=== PATIENT | female | born 1960 | race Caucasian/White ===

== ENCOUNTER → 2019-08-31 | Outpatient (CLI) | payer SELFPAY ==
--- NOTE | 2019-08-31 10:30 | XR ---
EXAMINATION TYPE: XR chest 2V DATE OF EXAM: 08/31/2019 COMPARISON: NONE TECHNIQUE: PA and lateral views submitted. HISTORY: Cough FINDINGS: The lungs are clear and there is no pneumothorax, pleural effusion, or focal pneumonia. Hypertrophi c and degenerative change of the spine. No overt failure. Heart size normal. IMPRESSION: 1. No acute process.
== END | disposition home or self-care (01) ==
LOC: RADXRYALE 10:13
PROVIDERS: ATTEND Physician Assistant Medical
DX: J45.31 Mild persistent asthma with (acute) exacerbation (principal)
CPT/HCPCS: 71046

== ENCOUNTER → 2022-07-05 | Day surgery (SDC) | payer OTHER ==
--- NOTE | 2022-07-11 09:53 | USB ---
Risk Values: Rosamaria 5 year model risk: 1.1%. NCI Lifetime model risk: 5.8%. Pathology Description: Location: 12 o'clock. Marker Left Behind. Approach: Lateral to Medial Needle Type: Mammotome Cores: 4 Skin Nicks: 1 Gauge: 13 The procedure of ultrasound guided core biopsy was explained to the patient. Benefits, alternatives, and risks were discussed. An informed consent was then obtained. A timeout was performed. The patient was placed in supine positioning for imaging and for the procedure. The overlying skin was prepped and draped in usual sterile fashion. Lidocaine was used as anesthetic into the skin and subcutaneous tissue up to area of concern in the right breast. A small skin caterina was made with surgical scalpel. Under ultrasound guidance, a 12-gauge vacuum assisted biopsy gun device was used to obtain 4 core samples. A biopsy clip was left in lesion. Hydromark core marker was placed. The patient tolerated the procedure well without any immediate complication. The patient was kept in the radiology department for short stay after the procedure and then discharged home in stable condition. Postprocedure mammogram: The patient was transferred to mammography for physician ordered post procedure mammogram for clip placement verification. Impression: Successful ultrasound guided core biopsy of area of concern in the right breast, full pathology results to follow. Recommendations: 1. Recommendations are pending pathology results. Pathology Results: Result: Benign, Fibrocystic change. RIGHT BREAST, 12:00 POSITION, ULTRASOUND GUIDED CORE BIOPSY: Fibrocystic change with apocrine metaplasia, columnar cell change and hyperplasia and stromal fibrosis. Rare microcalcification appreciated. Focally fragmented benign cyst with columnar cell change and hyperplasia present. Tissue Density: Right: The breast tissue is heterogeneously dense. This may lower the sensitivity of mammography. Overall Assessment: Benign Assessment: MG diagnostic mammo RT wo CAD - Right: Benign, BI-RAD 2. Management: Diagnostic Breast Ultrasound of the right breast in 6 months. Electronically signed and approved by: Cirilo Olivares D.O. Radiologis
== END ==
LOC: RADUSWWP 12:30
PROVIDERS: ATTEND Family Medicine
DX: R92.8 Other abnormal and inconclusive findings on diagnostic imaging of breast (principal); N60.81 Other benign mammary dysplasias of right breast
CPT/HCPCS: 88305; 77065; 19083; A4648

== ENCOUNTER → 2022-07-12 | Outpatient (CLI) | payer OTHER ==
[2022-07-12 09:02] VITALS: BP 122/76; PULSE 86; RESP 16; TEMP 99
--- NOTE | 2022-07-12 09:37 | P.GSHP ---
History of Present Illness H&P Date: 07/12/22 Chief Complaint: abnormal mammogrm/ultrasound right breast Mary is a 61 year old white [facility] right [facility]. Patient had a bilateral screening mammogram done at which she will on [facility] on 01/2122. This was felt to be a BIRADS 0 and additional views of the right breast was recommended. This was secondary to a density measuring 7 mm in the right breast. Additional views were obtained of this on [id number]. Following this an ultrasound was recommended. The ultrasound was performed on . Although the lesion noted on mammogram did not seem to correlate with the lesion of concern on ultrasound and ultrasound-guided core biopsy was recommended of the lesion noted at the 12 o'clock position of the right breast. Ultrasound core biopsy was obtained on [id number]. Pathology revealed fibrocystic breast changes. The patient does not feel any lumps masses or nodules of concern in either breast. She is not complaining of any nipple discharge or skin changes. She has not had any recent trauma or infection in the breast. She did fall in the garden and bump her right breast in December of 2020. Her breast did not turn black and blue. She had not had any biopsies or surgery on her breast prior to this biopsy on [id number]. Nicotine: none; stopped over 20 year ago used to smoke 1 Pack /week caffiene: 1 cup/day chocolate: none BCP: 10 years stopped 20 years ago Family History: Father: cancer pilosebacous cancer/ from that maternal grandmother: breast cancer sister: skin cancer no melanoma sister: skin cancer no melanoma brother: lymphoma nondhodgkins cousin: lymphoma nonhodgkins Hormonal History: menarche: 12 G0 unable to get menopause: 45 hormones: none at menopause Surgical history: tonsil Medical History: asthma sleep disorder Social History: nicotine: stopped 20 years ago alcohol: none drugs: none - Constitutional Constitutional: Denies chills, Denies fever - EENT Eyes: denies blurred vision, denies pain Ears: deny: decreased hearing, tinnitus Ears, nose, mouth and throat: Denies headache, Denies sore throat - Breasts Breasts: bilateral: as per HPI - Cardiovascular Cardiovascular: Denies chest pain, Denies shortness of breath - Respiratory Comment: asthma Respiratory: Denies cough, Denies 7 - Gastrointestinal Gastrointestinal: Denies abdominal pain, Denies diarrhea, Denies nausea, Denies vomiting - Genitourinary (Female) Genitourinary: Denies dysuria, Denies hematuria - Menstruation Menstruation: Reports postmenopausal - Musculoskeletal Musculoskeletal: Denies myalgias - Integumentary Integumentary: Denies pruritus, Denies rash - Neurological Neurological: Denies numbness, Denies weakness - Psychiatric Psychiatric: Reports anxiety, Reports depression - Endocrine Endocrine: Denies fatigue, Denies weight change - Hematologic/Lymphatic Comment: none - Allergic/Immunologic Allergic/Immunologic: Reports as per HPI Past Medical History Past Medical History: Asthma Additional Past Medical History / Comment(s): allergies History of Any Multi-Drug Resistant Organisms: None Reported Past Surgical History: Tonsillectomy Past Anesthesia/Blood Transfusion Reactions: No Reported Reaction Past Psychological History: Anxiety Smoking Status: Former smoker Past Alcohol Use History: Rare Additional Past Alcohol Use History / Comment(s): quit smoking 1998 Past Drug Use History: None Reported Medications and Allergies Home Medications Medication Instructions Recorded Confirmed Type Albuterol Sulfate [Ventolin HFA] 1 - 2 puff INHALATION Q6H PRN 06/26/22 07/12/22 History Cetirizine HCl [Zyrtec] 10 mg PO DAILY 06/26/22 07/12/22 History Fluticasone Nasal [place] [Flonase 1 spray EA NOSTRIL DAILY 06/26/22 07/12/22 History Nasal [place]] Fluticasone Propion/Salmeterol 1 each INHALATION DAILY 06/26/22 07/12/22 History [Airduo Respiclick 113-14 Mcg] Montelukast Sodium [Singulair] 10 mg PO HS 06/26/22 07/12/22 History Zolpidem [Ambien] 5 mg PO HS PRN 06/26/22 07/12/22 History traZODone HCL [Desyrel] 50 mg PO HS 06/26/22 07/12/22 History Allergies Allergy/AdvReac Type Severity Reaction Status Date / Time Penicillins Allergy Anaphylaxis Verified 07/12/22 08:58 bee venom protein (honey bee) AdvReac Anaphylaxis Verified 07/12/22 08:58 guinea pigs Allergy Severe Anaphylaxis Uncoded 07/12/22 08:58 Surgical - Exam Vital Signs Temp Pulse Resp BP Pulse Ox 99.0 F 86 16 122/76 98 07/12/22 08:59 07/12/22 08:59 07/12/22 08:59 07/12/22 08:59 07/12/22 08:59 BMI: 38.3 - General no distress - Eyes normal ocular movement - Neck trachea midline - Respiratory normal respiratory effort - Cardiovascular Rhythm: regular Heart Sounds: normal: S1, S2 - Abdomen Abdomen: soft, non tender, no guarding, no rigid, no rebound - Integumentary normal turgor - Neurologic no disoriented, no combative - Musculoskeletal normal gait, normal posture - Psychiatric oriented to time, oriented to person, oriented to place, speech is normal, memory intact Breast Exam: BRA: 44D inspection: grade 2/3 ptosis; right breast larger than left breast palpation: right breast: Multiple positional exam fibrocystic changes, some mild ecchymosis from recent biopsy no evidence of infection; no dominant masses or nodules of concern Right axilla: No adenopathy of concern Left breast: Multi-positional exam fibrocystic changes no dominant masses or nodules of concern Left axilla: No adenopathy of concern Results Ultrasound of the right breast biopsy site reviewed, mammogram and ultrasound reports are reviewed, pathology reviewed, pathology consistent with fibrocystic changes Assessment and Plan Assessment: Impression: Fibrocystic breast changes Radiographic abnormality right breast and ultrasound core biopsy/Benign Nothing on examination which would warrant interventional biopsy at this time There is some concern that the lesion seen on ultrasound at [facility] was not but was seen initially on the mammogram. Despite this no other lesions of concern were noted on ultrasound for biopsy at this time this will be followed closely Plan: Repeat right breast diagnostic mammogram and ultrasound in 6 months with examination at that time Cc: Dr. De Luna, Alla Herrera
== END ==
LOC: WWCWWP 08:50
PROVIDERS: ATTEND Surgery
DX: N60.11 Diffuse cystic mastopathy of right breast (principal); Z88.0 Allergy status to penicillin; Z91.030 Bee allergy status; Z91.018 Allergy to other foods
CPT/HCPCS: 77065

== ENCOUNTER → 2023-01-03 | Outpatient (CLI) | payer OTHER ==
--- NOTE | 2023-01-03 13:37 | MM ---
Reason for Exam: Follow-up at short interval from prior study. Last screening mammogram was performed 11 month(s) ago. Patient History: Menarche at age 12. Postmenopausal. 07/05/2022, Benign US biopsy breast VAD RT on the right side. Maternal grandmother had breast cancer under age 50. Risk Values: Rosamaria 5 year model risk: 1.4%. NCI Lifetime model risk: 6.7%. Prior Study Comparison: 09/03/2021 Bilateral MG 3D screening mammo w/cad, [facility]. 02/13/2022 Bilateral MG 3D screening mammo w/cad, [facility]. 07/05/2022 Right MG diagnostic mammo RT wo CAD, [facility]. Tissue Density: Right: There are scattered fibroglandular densities. Findings: Analyzed By CAD. Microclip anterior right breast associated with previously biopsied nodularity. Areas of asymmetric density elsewhere in the breast remains unchanged. No significant change from prior exams. Overall Assessment: Incomplete: need additional imaging evaluation, BI-RAD 0 Management: Diagnostic Breast Ultrasound of the right breast. Electronically signed and approved by: Dagoberto Loza M.D. Radiologist
--- NOTE | 2023-01-03 14:49 | USB ---
Reason for Exam: Follow-up at short interval from prior study. Patient History: Menarche at age 12. Postmenopausal. 07/05/2022, Benign US biopsy breast VAD RT on the right side. Maternal grandmother had breast cancer under age 50. Risk Values: Rosamaria 5 year model risk: 1.4%. NCI Lifetime model risk: 6.7%. Technique: Method: Targeted. Prior Study Comparison: 07/05/2022 Right MG diagnostic mammo RT wo CAD, [facility]. Findings: The upper inner quadrant of the right breast, the axilla of the right breast and the retroareolar of the right breast were scanned. Targeted ultrasound upper inner quadrant right breast 12:00 to 3:00 including the subareolar region and axilla. At the 12:00 position, 1 cm from the nipple, previous biopsy site, we note the microclip. This is now located within a benign-appearing 9 x 3 mm cyst. At the 12:00 position, 5 cm from the nipple, there is unchanged 4 mm too small to characterize lesion, likely tiny cyst. No other solid or cystic lesion. Overall Assessment: Benign, BI-RAD 2 Management: Screening Mammogram of both breasts in 6 months. Patient should continue monthly self-breast exams. A clinical breast exam by your physician is recommended on an annual basis. This exam should not preclude additional follow-up of suspicious palpable abnormalities. Note on Rosamaria scores and lifetime risk: 1. A Rosamaria score greater than 3% is considered moderate risk. If this is the case, consider specialist referral to assess eligibility for a risk reducing agent. 2. If overall lifetime risk for the development of breast cancer is 20% or higher, the patient may qualify for future screening with alternating mammogram and breast MRI. Electronically signed and approved by: Dagoberto Loza M.D. Radiologist
--- NOTE | 2023-01-03 15:45 | P.PN ---
Subjective Progress Note Date: 01/03/23 Principal diagnosis: fibrocystic breast changes Mary is a 62-year-old white female initially seen in consultation for Dr. De Luna regarding a core biopsy of the right breast. She had undergone a bilateral screening mammogram at [facility] on . This was felt to be BIRADS 0 and additional views of the right breast were recommended. This was secondary to a density measuring 7 mm in the right breast. Additional views were obtained of this on [id number]. Following this an ultrasound was recommended. This was performed on [id number]. Although the lesion noted on mammogram did not seem to correlate with the lesion of concern on ultrasound and ultrasound-guided core biopsy was recommended of the lesion noted at 12:00. This was performed on [id number]. Pathology revealed fibrocystic breast changes. The patient does not feel any new lumps masses or nodules of concern in either breast. She is not complaining of any nipple discharge or skin change. She did have a fall in her garden in December 2020. She did hit her breast at that time although it did not turn black and blue. The patient had a right breast mammogram and ultrasound on which was benign BIRADS 2. She will be due for a left breast mammogram in January 2023. Nicotine: none; stopped over 20 year ago used to smoke 1 Pack /week caffiene: 1 cup/day chocolate: none BCP: 10 years stopped 20 years ago Family History: Father: cancer pilosebacous cancer/ from that maternal grandmother: breast cancer sister: skin cancer no melanoma sister: skin cancer no melanoma brother: lymphoma nondhodgkins cousin: lymphoma nonhodgkins Hormonal History: menarche: 12 G0 unable to get menopause: 45 hormones: none at menopause Surgical history: tonsil Medical History: asthma sleep disorder Social History: nicotine: stopped 20 years ago alcohol: none drugs: none - Constitutional Constitutional: Denies chills, Denies fever - EENT Eyes: denies blurred vision, denies pain Ears: deny: decreased hearing, tinnitus Ears, nose, mouth and throat: Denies headache, Denies sore throat - Breasts Breasts: bilateral: as per HPI - Cardiovascular Cardiovascular: Denies chest pain, Denies shortness of breath - Respiratory Comment: asthma Respiratory: Denies cough, Denies 7 - Gastrointestinal Gastrointestinal: Denies abdominal pain, Denies diarrhea, Denies nausea, Denies vomiting - Genitourinary (Female) Genitourinary: Denies dysuria, Denies hematuria - Menstruation Menstruation: Reports postmenopausal - Musculoskeletal Musculoskeletal: Denies myalgias - Integumentary Integumentary: Denies pruritus, Denies rash - Neurological Neurological: Denies numbness, Denies weakness - Psychiatric Psychiatric: Reports anxiety, Reports depression - Endocrine Endocrine: Denies fatigue, Denies weight change - Hematologic/Lymphatic Comment: none - Allergic/Immunologic Allergic/Immunologic: Reports as per HPI Past Medical History Past Medical History: Asthma Additional Past Medical History / Comment(s): allergies History of Any Multi-Drug Resistant Organisms: None Reported Past Surgical History: Tonsillectomy Past Anesthesia/Blood Transfusion Reactions: No Reported Reaction Past Psychological History: Anxiety Smoking Status: Former smoker Past Alcohol Use History: Rare Additional Past Alcohol Use History / Comment(s): quit smoking 1998 Past Drug Use History: None Reported Medications and Allergies Home Medications Medication Instructions Recorded Confirmed Type Albuterol Sulfate [Ventolin HFA] 1 - 2 puff INHALATION Q6H PRN 06/26/22 07/12/22 History Cetirizine HCl [Zyrtec] 10 mg PO DAILY 06/26/22 07/12/22 History Fluticasone Nasal [place] [Flonase 1 spray EA NOSTRIL DAILY 06/26/22 07/12/22 History Nasal [place]] Fluticasone Propion/Salmeterol 1 each INHALATION DAILY 06/26/22 07/12/22 History [Airduo Respiclick 113-14 Mcg] Montelukast Sodium [Singulair] 10 mg PO HS 06/26/22 07/12/22 History Zolpidem [Ambien] 5 mg PO HS PRN 06/26/22 07/12/22 History traZODone HCL [Desyrel] 50 mg PO HS 06/26/22 07/12/22 History Allergies Allergy/AdvReac Type Severity Reaction Status Date / Time Penicillins Allergy Anaphylaxis Verified 07/12/22 08:58 bee venom protein (honey bee) AdvReac Anaphylaxis Verified 07/12/22 08:58 guinea pigs Allergy Severe Anaphylaxis Uncoded 07/12/22 08:58 Objective - Constitutional General appearance: Present: cooperative - EENT Eyes: Present: EOMI ENT: Present: hearing grossly normal - Neck Neck: Present: normal ROM - Respiratory Respiratory: bilateral: CTA - Cardiovascular Rhythm: regular Heart sounds: normal: S1, S2 - Gastrointestinal General gastrointestinal: Present: soft - Integumentary Integumentary: Present: normal turgor - Musculoskeletal Musculoskeletal: Present: gait normal - Psychiatric Psychiatric: Present: A&O x's 3, appropriate affect, intact judgment & insight - Additional findings Additional findings: Breast Exam: BRA: 44D inspection: grade 2/3 ptosis; right breast larger than left breast palpation: right breast: Multiple positional exam fibrocystic changes, some mild ecchymosis from recent biopsy no evidence of infection; no dominant masses or nodules of concern Right axilla: No adenopathy of concern Left breast: Multi-positional exam fibrocystic changes no dominant masses or nodules of concern Left axilla: No adenopathy of concern Assessment and Plan Assessment: Impression: Fibrocystic breast changes Radiographic abnormality right breast and ultrasound core biopsy/Benign Nothing on examination which would warrant interventional biopsy at this time right breast mammogram and ultrasound 01-03-23 BIRAD 2 Plan: left breast mammogram due in January, however patient would like to have both breasts done in 6 months instead. She understands that she'll be proximally 4 months past the due time for her left breast mammogram but would like to wait until 6 months and have both done at the same time. Cc: Dr. De Luna, Alla Herrera
== END | disposition home or self-care (01) ==
LOC: RADMAMWWP 12:51
PROVIDERS: ATTEND Surgery
DX: R92.8 Other abnormal and inconclusive findings on diagnostic imaging of breast (principal); Z78.0 Asymptomatic menopausal state; Z80.3 Family history of malignant neoplasm of breast
CPT/HCPCS: 77065; 76642; G0279; 77061

== ENCOUNTER → 2023-02-12 | Outpatient (CLI) | payer OTHER ==
--- NOTE | 2023-02-12 11:56 | XR ---
EXAMINATION TYPE: XR chest 2V DATE OF EXAM: 02/12/2023 COMPARISON: NONE TECHNIQUE: PA and lateral views submitted. HISTORY: Shortness of breath FINDINGS: The lungs are clear and there is no pneumothorax, pleural effusion, or focal pneumonia. Heart size normal and no overt failure. Osseous structures demonstrate hypertrophic and degenerative changes of the spine. Mild hyperinflation correlate for asthma or COPD. IMPRESSION: 1. No acute process.
== END | disposition home or self-care (01) ==
LOC: RADXRYALE 11:38
PROVIDERS: ATTEND Physician Assistant Medical
DX: J45.30 Mild persistent asthma, uncomplicated (principal); R06.02 Shortness of breath
CPT/HCPCS: 71046

== ENCOUNTER → 2023-03-26 | Day surgery (SDC) | payer OTHER ==
[2023-03-20 10:17] VITALS: BMI 36.8
[~2023-03-26] MED LIST: LACTATED RINGERS 1,000 ML IV SCH; PROPOFOL 10 MG/ML 20 ML VIAL IV ONE
[2023-03-26 11:56] VITALS: TEMP 97.4
--- NOTE | 2023-03-26 13:11 | P.PCN ---
Date of Procedure: 03/26/23 Procedure(s) Performed: BRIEF HISTORY: Patient is a 62-year-old pleasant white female scheduled for an elective colonoscopy as a part of screening for colon cancer. PROCEDURE PERFORMED: Colonoscopy. PREOPERATIVE DIAGNOSIS: Screening for colon cancer. IV sedation per Anesthesia. PROCEDURE: After informed consent was obtained, the patient, was brought into the endoscopy unit. IV sedation was administered by Anesthesia under continuous monitoring. Digital rectal examination was normal. Initially the Olympus CF-160 flexible video colonoscope was then inserted in the rectum, gradually advanced into the cecum without any difficulty. Careful examination was performed as the scope was gradually being withdrawn. Ileocecal valve and the appendiceal orifice were visualized and appeared normal. Prep was excellent. Mucosa of the cecum, ascending colon, transverse colon, descending colon, sigmoid colon, and rectum appeared normal. Retroflexion was performed in the rectum and no lesions were seen. The patient tolerated the procedure well. IMPRESSION: Normal-appearing colon from rectum to cecum with no evidence of colorectal neoplasia . RECOMMENDATIONS: Findings of this examination were discussed with the patient is a family. She was advised to have a repeat screening colonoscopy in 10 yea rs..
[2023-03-26 13:35] VITALS: BP 136/80; PULSE 76; RESP 14
== END ==
LOC: ORWHC2ENDO 10:59
PROVIDERS: ATTEND Internal Medicine Gastroenterology
DX: Z12.11 Encounter for screening for malignant neoplasm of colon (principal); Z88.0 Allergy status to penicillin; J45.909 Unspecified asthma, uncomplicated; Z79.899 Other long term (current) drug therapy
CPT/HCPCS: J2704; G0121

== ENCOUNTER → 2023-09-16 | Outpatient (CLI) | payer OTHER ==
--- NOTE | 2023-09-18 20:48 | MM ---
Reason for Exam: Screening (asymptomatic). Last mammogram was performed 1 year(s) and 7 month(s) ago. Patient History: Menarche at age 12. Postmenopausal. 07/05/2022, Benign US biopsy breast VAD RT on the right side. Maternal grandmother had breast cancer under age 50. Risk Values: Rosamaria 5 year model risk: 1.4%. NCI Lifetime model risk: 6.5%. Prior Study Comparison: 02/13/2022 Bilateral MG 3D screening mammo w/cad, [facility]. 07/05/2022 Right MG diagnostic mammo RT wo CAD, [facility]. 01/03/2023 Right MG 3D diag mammo w/cad RT, [facility]. Tissue Density: There are scattered fibroglandular densities. Findings: Analyzed By CAD. Microclip right breast from prior biopsy. Unchanged asymmetric densities bilaterally. There is no suspicious group of microcalcifications or new suspicious mass in either breast. Overall Assessment: Benign, BI-RAD 2 Management: Screening Mammogram of both breasts in 1 year. . Patient should continue monthly self-breast exams. A clinical breast exam by your physician is recommended on an annual basis. This exam should not preclude additional follow-up of suspicious palpable abnormalities. Note on Rosamaria scores and lifetime risk: 1. A Rosamaria score greater than 3% is considered moderate risk. If this is the case, consider specialist referral to assess eligibility for a risk reducing agent. 2. If overall lifetime risk for the development of breast cancer is 20% or higher, the patient may qualify for future screening with alternating mammogram and breast MRI. Electronically signed and approved by: Dagoberto Loza M.D. Radiologist
== END | disposition home or self-care (01) ==
LOC: RADMAMWWP 13:40
PROVIDERS: ATTEND Family Medicine
DX: Z12.39 Encounter for other screening for malignant neoplasm of breast (principal); Z80.3 Family history of malignant neoplasm of breast; Z78.0 Asymptomatic menopausal state
CPT/HCPCS: 77067

== ENCOUNTER → 2024-09-21 | Outpatient (CLI) | payer OTHER ==
--- NOTE | 2024-09-21 14:59 | MM ---
Reason for Exam: Screening (asymptomatic). Last screening mammogram was performed 12 month(s) ago. Patient History: Menarche at age 12. Patient has no children. Postmenopausal. 07/05/2022, Benign US biopsy breast VAD RT on the right side. Maternal grandmother had breast cancer under age 50. Risk Values: Rosamaria 5 year model risk: 2.3%. NCI Lifetime model risk: 9.5%. Prior Study Comparison: 07/05/2022 Right MG diagnostic mammo RT wo CAD, [facility]. 01/03/2023 Right MG 3D diag mammo w/cad RT, [facility]. 09/16/2023 Bilateral MG screening mammo w CAD, [facility]. Tissue Density: There are scattered areas of fibroglandular density. Findings: Analyzed By CAD. Right breast: There is no suspicious group of microcalcifications or new suspicious mass. Left breast: There is no suspicious group of microcalcifications or new suspicious mass. Overall Assessment: Negative, BI-RAD 1 Management: Screening Mammogram of both breasts in [address] [facility] will attempt to contact patient to return for supplemental views and ultrasound if indicated. Patient should continue monthly self-breast exams. A clinical breast exam by your physician is recommended on an annual basis. This exam should not preclude additional follow-up of suspicious palpable abnormalities. Note on Rosamaria scores and lifetime risk: 1. A Rosamaria score greater than 3% is considered moderate risk. If this is the case, consider specialist referral to assess eligibility for a risk reducing agent. 2. If overall lifetime risk for the development of breast cancer is 20% or higher, the patient may qualify for future screening with alternating mammogram and breast MRI. [facility], , 09/21/2024 2:56 PM. Electronically signed and approved by: Gee Wills DO
== END | disposition home or self-care (01) ==
LOC: RADMAMWWP 13:38
PROVIDERS: ATTEND Family Medicine
DX: Z12.31 Encounter for screening mammogram for malignant neoplasm of breast (principal); R92.323 Mammographic fibroglandular density, bilateral breasts; Z78.0 Asymptomatic menopausal state; Z80.3 Family history of malignant neoplasm of breast
CPT/HCPCS: 77063; 77067

== ENCOUNTER → 2025-02-03 | Outpatient (CLI) | payer OTHER ==
--- NOTE | 2025-02-03 11:20 | XR ---
EXAMINATION TYPE: XR chest 2V DATE OF EXAM: 02/03/2025 10:56 AM COMPARISON: 02/12/2023 CLINICAL INDICATION: Female, 64 years old with history of [id number] COUGH,SOB, TECHNIQUE: XR chest 2V view(s) obtained. FINDINGS: The heart size is normal. The pulmonary vasculature is normal. The lungs are clear. Stable punctate density may be at the left base. IMPRESSION: 1. No acute pulmonary process. [facility], , 02/03/2025 11:18 AM
== END | disposition home or self-care (01) ==
LOC: RADXRYALE 10:44
PROVIDERS: ATTEND Physician Assistant Medical
DX: R05.1 Acute cough (principal); R06.02 Shortness of breath
CPT/HCPCS: 71046